=== PATIENT | male | born 1955 | race Caucasian/White ===

== ENCOUNTER → 2016-11-08 | Outpatient (CLI) | payer OTHER | LOC: MRI 06:55 | DX: M47.896 Other spondylosis, lumbar region (principal); M48.06 Spinal stenosis, lumbar region ==

== ENCOUNTER → 2016-11-25 | Outpatient (CLI) | payer OTHER ==
[~2016-11-25] MED LIST: CRESTOR20 MG PO; IBUPROFEN200 M2 PO; NORCO 5-325 TA1 EACH PO; RELAFEN750 MG PO
== END ==
LOC: ULTRA 11-24 11:10
DX: N28.1 Cyst of kidney, acquired (principal)

== ENCOUNTER → 2017-02-21 | Outpatient (CLI) | payer OTHER ==
[~2017-02-21] VITALS: Ht 175.3 cm; Wt 90.7 kg
[~2017-02-21] MED LIST changes: +ALEVE220 MG PO; +AVAPRO300 MG PO; +BYSTOLIC 5 MG5 M1 PO; +FENOFIBRATE160 MG PO; +FLOMAX0.4 MG PO; +LIPITOR10 MG PO; +LISINOPRIL40 MG PO; +VENTOLIN HFA 1818 GM INH; +ZANAFLEX4 MG PO
--- NOTE | ~2017-02-21 | HPC ---
[facility] [place] [address] PAIN MANAGEMENT CONSULTATION Name: PHYLLIS REYNOLDS Room #: REG ZANE Ventura#: [id number] Admission: 02/21/17 Attend Phys: Brian Ta DO Discharge: Date of : 59 Report #: [id number] THIS REPORT FOR: //name// CC: Joseluis Ta The patient is a very pleasant 61-year-old gentleman, seen in consultation 01/21/2017, diagnosed with symptomatic lumbar radiculopathy. We progressed to perform epidural injection 01/28/2017, L5-S1 midline. He returns to pain clinic today, notes that the injection now nearly 4 weeks ago, has afforded good incremental relief, in fact leg pain is nearly gone, back pain remains problematic. He does note; however, he still has neurogenic claudication with pain in his back and leg, exacerbated with standing greater than about 10 minutes. PHYSICAL EXAMINATION: Shows a 61-year-old gentleman, BMI is 29.5 kg/m2. Vital signs show modest hypertension 160/92, pulse 60, respirations 14. Rises from chair using armrest. Gait is tandem. Lower extremity strength is generally preserved, though he still has a positive straight leg raise on the left. Tender in the low back, exacerbated with rotation. No discrete trigger points are noted. Skin integument is intact. ASSESSMENT: Symptomatic lumbar radiculopathy with greater than 50% improvement following 1 epidural injection, ongoing left radicular pain pattern. The patient specifically reports 75% overall improvement for greater than 3 weeks. RECOMMENDATIONS: 1. Repeat epidural injection under fluoroscopy at next visit, midline L5-S1. 2. We will trial tizanidine 4 mg half to one tablet 3 times a day as needed for spasm. Discharged in good and stable condition, follow up for epidural injection at next visit. <ELECTRONICALLY SIGNED> By: Brian Ta DO 02/25/17 [id number] [id number] Brian Ta DO /nt
[2017-02-21 12:36] VITALS: BP 160/92
== END ==
LOC: PAIN 06:48
DX: M54.16 Radiculopathy, lumbar region (principal); M79.605 Pain in left leg; I10 Essential (primary) hypertension

== ENCOUNTER → 2017-02-28 | Outpatient (CLI) | payer OTHER ==
[~2017-02-28] VITALS: Ht 177.8 cm; Wt 91.0 kg
--- NOTE | ~2017-02-28 | HPC ---
[facility] [address] [place] [address] PAIN MANAGEMENT CONSULTATION Name: PHYLLIS REYNOLDS Loc Room #: REG ZANE Ventura#: [id number] Admission: 02/28/17 Attend Phys: Brian Ta DO Discharge: Date of : 59 Report #: [id number] THIS REPORT FOR: //name// CC: Joseluis Ta DATE OF SERVICE: 02/28/2017 The patient is a very pleasant 61-year-old gentleman, prior seen in the pain clinic 02/21/2017. He had single epidural injection on 01/28/2017 at L5-S1 with good incremental baseline pain, still had radicular symptoms. I started on some tizanidine, sought authorization for repeat epidural injection. Presents to pain clinic today with ongoing axial back pain. Still good relief with the first injection, but rates subjective pain a 4 on VAS. Describing primarily pain in low back, burning, aching sensation. Notes at that time the tizanidine helped some. Radicular symptoms significantly improved. RECOMMENDATION: Repeat epidural injection under fluoroscopy at L5-S1 as we had discussed at last visit, will not make a followup appointment at this time, simply have the patient follow up as needed for reevaluation. ASSESSMENT: Symptomatic lumbar radiculopathy. PROCEDURE: Lumbar epidural injection under fluoroscopy. PROCEDURE NOTE: After both written and informed consent to include risk of spinal cord damage, increased pain, weakness and dural puncture, the patient was taken to the fluoroscopy suite, placed in the prone position. After sterile prep and drape, a skin wheal with lidocaine was raised. A 22-gauge epidural Tuohy needle was inserted in the midline at L5-S1 with good loss to resistance. Negative aspiration for cerebrospinal fluid or blood was noted. Then 1 mL of Omnipaque under biplanar fluoroscopy showed good spread within the epidural space. This was followed with 80 mg of triamcinolone plus 1 mL of 1.5% preservative-free Xylocaine, 0.5 mL Xylocaine was then injected to flush the needle; it was removed. The patient was monitored for an appropriate period of time and discharged in good and stable condition. By: [id number] Brian Ta DO /nt
[2017-02-28 11:26] VITALS: BP 157/91
== END | disposition home or self-care (01) ==
LOC: PAIN 07:11
DX: M54.16 Radiculopathy, lumbar region (principal); Z87.891 Personal history of nicotine dependence; Z79.891 Long term (current) use of opiate analgesic; Z79.899 Other long term (current) drug therapy

== ENCOUNTER → 2018-09-05 | Outpatient (CLI) | payer OTHER | LOC: CAT 07:59 | DX: Z13.6 Encounter for screening for cardiovascular disorders (principal); E78.00 Pure hypercholesterolemia, unspecified; I25.10 Atherosclerotic heart disease of native coronary artery without angina pectoris ==

== ENCOUNTER → 2019-11-30 | Outpatient (CLI) | payer OTHER | LOC: SJCVCIMAG 06:53 | PROVIDERS: ATTEND Internal Medicine Cardiovascular Disease | DX: I25.10 Atherosclerotic heart disease of native coronary artery without angina pectoris (principal); I10 Essential (primary) hypertension; R93.1 Abnormal findings on diagnostic imaging of heart and coronary circulation ==

== ENCOUNTER → 2021-04-23 | Outpatient (CLI) | payer OTHER | LOC: SJCVCIMAG 04-15 16:01 | PROVIDERS: ATTEND Internal Medicine Cardiovascular Disease | DX: R93.1 Abnormal findings on diagnostic imaging of heart and coronary circulation (principal) ==